=== PATIENT | male | born 1940 | race Caucasian/White ===

== ENCOUNTER 2022-12-05 14:23 | Emergency (ER) | payer MEDICARE, OTHER ==
[~2022-12-05] VITALS: Ht 160 cm; Wt 79.0 kg
--- NOTE | 2022-12-05 14:32 | NUR ---
PT'S DAUGHTER; CHETAN TRAMMELL, CALLED. PT HAS GIVEN PERMISSION TO GIVE CHETAN ALL INFORMATION REGARDING HIS ER VISIT TODAY CONTACT # FOR CHETAN VALERI: [phone]
--- NOTE | 2022-12-05 15:30 | NUR ---
CLINIC SPECIALIST ASSESSMENT REVIEWED. AGREE AND APROVE OF THE CLINIC SPECIALIST ASSESSMENT.
[2022-12-05] MEDS ORDERED: HYDROcodone/acetaminophen 10/325mg tab PO ONE (15:45)
[2022-12-05 17:33] LABS: CLARITY,URINE SLIGHTLY CLOUDY (Clear); COLOR,URINE YELLOW (Yellow); GLUCOSE, URINE NEGATIVE (Neg); KETONES,URINE 40 mg/dl (Neg); LEUKOCYTE ESTERASE ,URINE NEGATIVE (Neg); NITRITES, URINE NEGATIVE (Neg); OCCULT BLOOD,URINE NEGATIVE (Neg); PROTEIN,URINE NEGATIVE (Neg); UROBILINOGEN,URINE 0.2 E.U/dL (0.2-1.0)
[2022-12-05 17:34] LABS: UA COLLECTION TYPE VOIDED
[2022-12-05 17:39] LABS: BASOPHILS % (AUTO) 0.2 % (0-1); EOSINOPHILS % (AUTO) 0 % (0-6); HEMOGLOBIN 13.4 g/dl (14.0-17.9); LYMPHOCYTES % (AUTO) 9.4 % (21-51); MEAN CORPUSCULAR HEMOGLOBIN 31.5 PG (27.0-31.0); MEAN CORPUSCULAR HGB CONC 34.4 g/dL (33.0-36.5); MEAN CORPUSCULAR VOLUME 91.6 FL (78-98); MEAN PLATELET VOLUME 7.9 FL (7.4-10.4); MONOCYTES # (AUTO) 1.2 X10'3 (0-0.9); MONOCYTES % (AUTO) 11.5 % (2-12); NEUTROPHILS # (AUTO) 8.2 X10'3 (1.8-7.7); NEUTROPHILS % (AUTO) 78.9 % (42-75); PLATELET COUNT 166 X10'3 (140-440); RED BLOOD COUNT 4.26 X10'6 (4.70-6.10); RED CELL DISTRIBUTION WIDTH 13.7 % (11.5-14.5); WHITE BLOOD COUNT 10.4 X10'3 (4.5-11.0)
[2022-12-05 17:48] LABS: MUCUS STRANDS MANY /LPF (Neg); SQUAMOUS EPITHELIAL CELL,UR FEW /LPF (FEW)
[2022-12-05 17:49] VITALS: BP 134/68
[2022-12-05 17:56] LABS: BACTERIA,URINE 1+ /HPF (Neg)
[2022-12-05 17:57] LABS: HYALINE CASTS 0-3 /LPF (NEGATIVE)
[2022-12-05 18:01] LABS: CELLULAR CAST 0-4 /LPF (NEGATIVE)
[2022-12-05 18:05] LABS: ALANINE AMINOTRANSFERASE 12 U/L (12-78); ALBUMIN 3.5 G/DL (3.4-5.0); ALBUMIN/GLOBULIN RATIO 1.2 (1.1-1.5); ALKALINE PHOSPHATASE 53 IU/L (46-116); ANION GAP 9 (8-16); ASPARTATE AMINO TRANSFERASE 14 U/L (10-37); BILIRUBIN,TOTAL 1.8 MG/DL (0.1-1.0); BLOOD UREA NITROGEN 18 MG/DL (7-18); BUN/CREATININE RATIO 24.3 (10.0-20.0); C-REACTIVE PROTEIN 5.22 MG/DL (0.0-0.5); CALCIUM 8.9 MG/DL (8.5-10.1); CHLORIDE 104 MMOL/L (99-107); CREATININE 0.74 MG/DL (0.60-1.10); GLUCOSE 118 MG/DL (70-104); POTASSIUM 3.5 MMOL/L (3.5-5.1); SODIUM 138 MMOL/L (135-145); TOTAL PROTEIN 6.4 G/DL (6.4-8.2); eGFR > 90 ML/MIN
[2022-12-05 18:07] LABS: TRANSITIONAL EPI CELLS,URINE FEW /HPF
--- NOTE | 2022-12-05 19:20 | NUR ---
PT WAS ABLE TO GET OUT OF BED WITH NO ASTANCE, ONLY AT BEDSIDE FOR SUPPORT NO WALKER WAS AVALIBLE. PT STOOD ON OWN ACCORD WITH MINIAL ASSISTANCE. PT STATED AT HOME HE USED A WALKER. PT SHUFFELED 2FT FORWARD ND RETURNED TO BED. INFORMED
[2022-12-05] MEDS ORDERED: DICL100G30 TOP (19:43)
[2022-12-05] MEDS ORDERED: NAPR-996 PO (19:43)
[2022-12-05] MEDS ORDERED: naproxen 500mg tablet PO ONE (19:45)
--- NOTE | 2022-12-05 20:11 | NUR ---
PT MOVED TO WHEEL CHAIR AND TX OUT TO CAR.
== END 2022-12-05 20:19 | disposition home or self-care (01) ==
LOC: ER 14:24
DX: M25.462 Effusion, left knee (principal); G89.29 Other chronic pain; W19.XXXA Unspecified fall, initial encounter; Y93.89 Activity, other specified; Y92.89 Other specified places as the place of occurrence of the external cause; Y99.8 Other external cause status
CPT/HCPCS: 36415; 73560; 73700; 80053; 81001; 83735; 85025; 85651; 86140; 87088; 99284; A6449

== ENCOUNTER 2022-12-28 12:46 | Inpatient (IN) | payer MEDICARE, OTHER ==
[~2022-12-28] VITALS: Ht 162.6 cm; Wt 79.5 kg
[~2022-12-28 12:46] MED LIST: DICL100G30 TOP; NAPR-996 PO
[2022-12-28 14:11] LABS: BASOPHILS % (AUTO) 0.3 % (0-1); EOSINOPHILS # (AUTO) 0.3 X10'3 (0-0.9); EOSINOPHILS % (AUTO) 2.9 % (0-6); HEMATOCRIT 36.6 % (42.0-52.0); HEMOGLOBIN 12.5 g/dl (14.0-17.9); LYMPHOCYTES # (AUTO) 1.2 X10'3 (1.1-4.8); LYMPHOCYTES % (AUTO) 12.7 % (21-51); MEAN CORPUSCULAR HEMOGLOBIN 31.6 PG (27.0-31.0); MEAN CORPUSCULAR HGB CONC 34.1 g/dL (33.0-36.5); MEAN CORPUSCULAR VOLUME 92.7 FL (78-98); MEAN PLATELET VOLUME 8.8 FL (7.4-10.4); MONOCYTES % (AUTO) 10.5 % (2-12); NEUTROPHILS # (AUTO) 6.8 X10'3 (1.8-7.7); NEUTROPHILS % (AUTO) 73.6 % (42-75); PLATELET COUNT 136 X10'3 (140-440); RED BLOOD COUNT 3.95 X10'6 (4.70-6.10); RED CELL DISTRIBUTION WIDTH 15.3 % (11.5-14.5); WHITE BLOOD COUNT 9.3 X10'3 (4.5-11.0)
[2022-12-28 14:20] LABS: APTT 29 SECONDS (22-32)
[2022-12-28 14:25] LABS: ALANINE AMINOTRANSFERASE 23 U/L (12-78); ALBUMIN 3.6 G/DL (3.4-5.0); ALBUMIN/GLOBULIN RATIO 1.6 (1.1-1.5); ALKALINE PHOSPHATASE 50 IU/L (46-116); ANION GAP 11 (8-16); ASPARTATE AMINO TRANSFERASE 37 U/L (10-37); BLOOD UREA NITROGEN 18 MG/DL (7-18); BUN/CREATININE RATIO 22.5 (10.0-20.0); CALCIUM 8.4 MG/DL (8.5-10.1); CHLORIDE 105 MMOL/L (99-107); GLUCOSE 106 MG/DL (70-104); POTASSIUM 3.6 MMOL/L (3.5-5.1); SODIUM 141 MMOL/L (135-145); TOTAL CARBON DIOXIDE 25.3 MMOL/L (24-32); TOTAL PROTEIN 5.8 G/DL (6.4-8.2); eGFR > 90 ML/MIN
--- NOTE | 2022-12-28 16:15 | NUR ---
DR VILLALOBOS AT BEDSIDE.
[2022-12-28] MEDS ORDERED: acetaminophen 325mg tablet PO PRN (18:25)
[2022-12-28] MEDS ORDERED: potassium Cl 20 mEq SR tablet PO PRN (18:25)
[2022-12-28] MEDS ORDERED: potassium Cl 40MEQ/1/2NS 520ml 520 ML IV PRN (18:25)
[2022-12-28] MEDS ORDERED: magnesium 4gm in 100ml NS 100 ML IV PRN (18:25)
[2022-12-28] MEDS ORDERED: ondansetron 4mg rapidly disintigrating tab PO PRN (18:25)
[2022-12-28] MEDS ORDERED: magnesium Cl slow-release 64mg tablet PO PRN (18:25)
[2022-12-28] MEDS ORDERED: ondansetron/PF 4mg/2ml inj IV PRN (18:25)
[2022-12-28] MEDS ORDERED: magnesium 2GM in 50ml NS 50 ML IV PRN (18:25)
[2022-12-28] MEDS ORDERED: bisacodyl 10mg suppository rectal RC PRN (18:25)
[2022-12-28] MEDS ORDERED: HYDROmorphone/PF 0.2 MG/ML SYRINGE IV PRN (18:25)
[2022-12-28] MEDS ORDERED: HYDROcodone/acetaminophen 5mg/325mg tablet PO PRN (18:25)
[2022-12-28] MEDS ORDERED: acetaminophen 650mg rectal suppository RC PRN (18:25)
[2022-12-28] MEDS ORDERED: mag hydrox/Alum hydrox/simeth 30ml oral suspension PO PRN (18:25)
--- NOTE | 2022-12-28 18:45 | NUR ---
ASSUMED CARE FROM KAITY MAI
[2022-12-28] MEDS: normal saline 1000ml 1,000 ML IV SCH (18:46)
--- NOTE | 2022-12-28 18:54 | NUR ---
FAMILY AT BEDSIDE.
[2022-12-28 19:21] LABS: CHOL/HDL RATIO 1.9 (0.00-4.99); CHOLESTEROL 107 MG/DL (0-200); HDL CHOLESTEROL 55 MG/DL (35-60); LDL CHOLESTEROL 45 MG/DL (50-100); TRIGLYCERIDES 50 MG/DL (20-135)
[2022-12-28] MEDS: K and/or MAG REPLACEMENT MC SCH (20:00)
--- NOTE | 2022-12-28 20:00 | NUR ---
Received report from ER nurse Jara. All pertinent info received, all questions answered.
--- NOTE | 2022-12-28 20:10 | NUR ---
Pt arrived from ER via gurney at 2004. Transferred to bed via slider. Pt awake, alert, confused. Family at bedside.
[2022-12-28 20:16] VITALS: BP 131/74
[2022-12-28] MEDS ORDERED: temazepam 15mg capsule PO PRN (21:00)
[2022-12-28] MEDS: docusate sod 100mg capsule PO SCH (21:38)
--- NOTE | 2022-12-28 21:56 | NUR ---
Pt agitated and pulling at lines, pulling off clothing, yelling out. called and advised. zyprexa 5mgX1 ordered.
[2022-12-28] MEDS ORDERED: OLANZapine 2.5MG tablet PO ONE (22:00)
--- NOTE | 2022-12-28 22:16 | NUR ---
Pt agitated and screaming, threatening staff, trying to get out of bed. Zyprexa PO given but patient still agitated as pills just given. MD called for restraints.
--- NOTE | 2022-12-28 22:26 | NUR ---
Called pt daughter Laurie and left message to call me back, advised via message and asked her to call me back.
--- NOTE | 2022-12-28 22:40 | NUR ---
Pt daughter called back and I advised of current situation. She acknowledged and stated she would be back to hospital in AM.
[2022-12-29] VITALS (19 sets, daily range): BP systolic 111–164; BP diastolic 59–116
--- NOTE | 2022-12-29 00:13 | NUR ---
Pt still screaming, agitated. Managed to pull out PIV. HR in 160's. called who ordered 1mg Ativan IM.
[2022-12-29] MEDS ORDERED: LORazepam 2 mg/ml vial IM ONE (00:15)
--- NOTE | 2022-12-29 03:48 | NUR ---
Pt less agitated but still awake, pulling at lines, anxious and fidgety. HR has been elevated consistently in the 140 range.
--- NOTE | 2022-12-29 05:08 | NUR ---
Called Dr. Montana and advised that pt HR elevated in 140's most of evening. ordered one time dose of metoprolol.
[2022-12-29] MEDS ORDERED: metoprolol tartrate 12.5mg (1/2 tablet) PO ONE (05:10)
[2022-12-29 06:14] LABS: BASOPHILS % (AUTO) 0.2 % (0-1); EOSINOPHILS # (AUTO) 0.2 X10'3 (0-0.9); EOSINOPHILS % (AUTO) 1.7 % (0-6); HEMATOCRIT 37.8 % (42.0-52.0); LYMPHOCYTES # (AUTO) 1.3 X10'3 (1.1-4.8); LYMPHOCYTES % (AUTO) 12.4 % (21-51); MEAN CORPUSCULAR HEMOGLOBIN 31.3 PG (27.0-31.0); MEAN CORPUSCULAR HGB CONC 34.3 g/dL (33.0-36.5); MEAN CORPUSCULAR VOLUME 91.5 FL (78-98); MEAN PLATELET VOLUME 8.6 FL (7.4-10.4); MONOCYTES # (AUTO) 1.3 X10'3 (0-0.9); MONOCYTES % (AUTO) 11.8 % (2-12); NEUTROPHILS # (AUTO) 7.9 X10'3 (1.8-7.7); NEUTROPHILS % (AUTO) 73.9 % (42-75); PLATELET COUNT 144 X10'3 (140-440); RED BLOOD COUNT 4.14 X10'6 (4.70-6.10); RED CELL DISTRIBUTION WIDTH 15.2 % (11.5-14.5); WHITE BLOOD COUNT 10.7 X10'3 (4.5-11.0)
--- NOTE | 2022-12-29 06:35 | NUR ---
Patient in room PCU 3027. I have received report from KAITY Causey and had the opportunity to ask questions and assume patient care.
--- NOTE | 2022-12-29 06:35 | NUR ---
Problems reprioritized. Patient report given, questions answered & plan of care reviewed with Vero.
[2022-12-29 06:47] LABS: ALANINE AMINOTRANSFERASE 23 U/L (12-78); ALBUMIN 3.3 G/DL (3.4-5.0); ALBUMIN/GLOBULIN RATIO 1.4 (1.1-1.5); ALKALINE PHOSPHATASE 52 IU/L (46-116); ANION GAP 12 (8-16); ASPARTATE AMINO TRANSFERASE 40 U/L (10-37); BILIRUBIN,TOTAL 2.4 MG/DL (0.1-1.0); BLOOD UREA NITROGEN 18 MG/DL (7-18); BUN/CREATININE RATIO 22.2 (10.0-20.0); CALCIUM 8.2 MG/DL (8.5-10.1); CHLORIDE 106 MMOL/L (99-107); CREATININE 0.81 MG/DL (0.60-1.10); GLUCOSE 105 MG/DL (70-104); MAGNESIUM 1.6 MG/DL (1.5-2.4); POTASSIUM 3.4 MMOL/L (3.5-5.1); SODIUM 142 MMOL/L (135-145); TOTAL CARBON DIOXIDE 24.2 MMOL/L (24-32); TOTAL PROTEIN 5.7 G/DL (6.4-8.2); eGFR > 90 ML/MIN
[2022-12-29] MEDS: normal saline 1000ml 1,000 ML IV SCH ×3 (06:55→21:34)
[2022-12-29] MEDS: K and/or MAG REPLACEMENT MC SCH ×2 (07:52→20:00)
[2022-12-29] MEDS ORDERED: LORazepam 1 MG tablet PO PRN ×2 (08:00→14:45)
[2022-12-29] MEDS ORDERED: LORazepam 2 mg/ml vial IV PRN (08:00)
[2022-12-29] MEDS: potassium Cl 20 mEq SR tablet PO PRN ×3 (08:20→16:16)
[2022-12-29] MEDS: docusate sod 100mg capsule PO SCH ×2 (08:20→20:00)
[2022-12-29] MEDS: carVEDilol 3.125mg tablet PO SCH ×2 (08:20→21:16)
[2022-12-29 10:39] LABS: CLARITY,URINE CLEAR (Clear); COLOR,URINE YELLOW (Yellow); GLUCOSE, URINE NEGATIVE (Neg); LEUKOCYTE ESTERASE ,URINE NEGATIVE (Neg); NITRITES, URINE NEGATIVE (Neg); OCCULT BLOOD,URINE NEGATIVE (Neg); PROTEIN,URINE NEGATIVE (Neg)
[2022-12-29 10:47] LABS: KETONES,URINE >=80 mg/dl (Neg)
[2022-12-29 10:48] LABS: UA COLLECTION TYPE NON-SPECIFIED
[2022-12-29] MEDS ORDERED: diltiazem 5mg/ml 5ml inj. IV ONE (14:45)
[2022-12-29] MEDS ORDERED: ziprasidone IM 20mg inj **IM only IM ONE (14:45)
[2022-12-29] MEDS ORDERED: diltiazem-NS 100mg/100ml 100 ML IV SCH (14:45)
[2022-12-29] MEDS ORDERED: CARV3.12 PO (15:53)
[2022-12-29] MEDS ORDERED: OMEP20CA16 PO (15:53)
[2022-12-29] MEDS ORDERED: ATOR10TA87 PO (15:53)
[2022-12-29] MEDS ORDERED: OCUVITE PO (15:53)
[2022-12-29] MEDS: LORazepam 2 mg/ml vial IV PRN (17:48)
--- NOTE | 2022-12-29 18:04 | NUR ---
Patient in room PCU 3027. I have received report from Vero and had the opportunity to ask questions and assume patient care.
--- NOTE | 2022-12-29 18:40 | NUR ---
Problems reprioritized. Patient report given, questions answered & plan of care reviewed with KAITY Causey.
--- NOTE | 2022-12-29 19:00 | NUR ---
1800 informed by [employer] that @ 1733 pt converted to NSR w/new first degree heart block. notified. 1810 pt's HR began to go into the 50s. Diltiazem drip stopped while awaiting MD response. paged again to inform of diltiazem drip stopped due to HR decreasing into 50s @ times. 1840 No MD response, therefore paged again requesting orders for diltiazem, etc.
--- NOTE | 2022-12-29 19:45 | NUR ---
Advised MD that pt converted to NSR with normal BP and HR within normal limits. advised to Lalo clark
--- NOTE | 2022-12-29 22:54 | NUR ---
Daughter of patient (Laurie) called asking for update on patient. She stated she visited with her father today and he was not responding to her as he did the last time that she saw him. I advised his condition had not changed since she left and that the MD was aware of his mental status change and was recommending a neurology consult.
[2022-12-30 02:00] VITALS: BP 126/81
--- NOTE | 2022-12-30 05:32 | NUR ---
Pt had incontinent urine episode. Changed pt linen, provided nadeem-care, turned pt. Loosened restraints during this time asked pt questins. Pt responded with eyes closed but trying to answer questins. When asked, he advised me of his daughters names. When finished I sat beside patient who had eyes closed with restraints loosed to see if he would pull at lines or tubes or attempt to get out of bed. Pt calm, breathing easily with eyes closed. Will continue to observe with restraints off.
[2022-12-30 06:00] VITALS: BP 156/81
[2022-12-30 06:15] LABS: ALANINE AMINOTRANSFERASE 23 U/L (12-78); ALBUMIN 3.2 G/DL (3.4-5.0); ALBUMIN/GLOBULIN RATIO 1.3 (1.1-1.5); ALKALINE PHOSPHATASE 53 IU/L (46-116); ANION GAP 13 (8-16); ASPARTATE AMINO TRANSFERASE 42 U/L (10-37); BLOOD UREA NITROGEN 14 MG/DL (7-18); BUN/CREATININE RATIO 21.9 (10.0-20.0); CALCIUM 8.3 MG/DL (8.5-10.1); CHLORIDE 103 MMOL/L (99-107); CREATININE 0.64 MG/DL (0.60-1.10); GLUCOSE 83 MG/DL (70-104); MAGNESIUM 1.6 MG/DL (1.5-2.4); POTASSIUM 3.6 MMOL/L (3.5-5.1); SODIUM 139 MMOL/L (135-145); TOTAL CARBON DIOXIDE 22.6 MMOL/L (24-32); TOTAL PROTEIN 5.7 G/DL (6.4-8.2); eGFR > 90 ML/MIN
--- NOTE | 2022-12-30 06:35 | NUR ---
Problems reprioritized. Patient report given, questions answered & plan of care reviewed with Vero.
--- NOTE | 2022-12-30 06:45 | NUR ---
Patient in room PCU 3027. I have received report from KAITY Causey and had the opportunity to ask questions and assume patient care.
[2022-12-30] MEDS: K and/or MAG REPLACEMENT MC SCH ×2 (07:31→20:29)
[2022-12-30] MEDS ORDERED: bisacodyl 10mg suppository rectal RC PRN (07:35)
[2022-12-30] MEDS: docusate sod 100mg capsule PO SCH ×2 (08:08→20:00)
[2022-12-30] MEDS: magnesium hydroxide 30ml (MOM) UD suspension PO PRN (08:08)
[2022-12-30] MEDS: carVEDilol 3.125mg tablet PO SCH ×2 (08:09→20:36)
[2022-12-30] MEDS: normal saline 1000ml 1,000 ML IV SCH ×2 (08:25→20:40)
[2022-12-30 08:36] LABS: BASOPHILS % (AUTO) 0.2 % (0-1); EOSINOPHILS # (AUTO) 0.4 X10'3 (0-0.9); EOSINOPHILS % (AUTO) 3.5 % (0-6); HEMATOCRIT 39.5 % (42.0-52.0); HEMOGLOBIN 13.4 g/dl (14.0-17.9); LYMPHOCYTES # (AUTO) 1.1 X10'3 (1.1-4.8); LYMPHOCYTES % (AUTO) 10.3 % (21-51); MEAN CORPUSCULAR HEMOGLOBIN 31.5 PG (27.0-31.0); MEAN CORPUSCULAR VOLUME 92.6 FL (78-98); MEAN PLATELET VOLUME 8.8 FL (7.4-10.4); MONOCYTES # (AUTO) 1.1 X10'3 (0-0.9); MONOCYTES % (AUTO) 10.5 % (2-12); NEUTROPHILS # (AUTO) 7.9 X10'3 (1.8-7.7); NEUTROPHILS % (AUTO) 75.5 % (42-75); PLATELET COUNT 151 X10'3 (140-440); RED BLOOD COUNT 4.27 X10'6 (4.70-6.10); RED CELL DISTRIBUTION WIDTH 14.8 % (11.5-14.5); WHITE BLOOD COUNT 10.4 X10'3 (4.5-11.0)
--- NOTE | 2022-12-30 08:48 | NUR ---
Noted pt with a low Lei of 12. Per [facility] note pt with a dry scab noted to right elbow and behind right ear, remainder of skin was unremarkable. No increased protein needs requiring a nutrition intervention warranted at this time. Will continue to follow. Addendum: 12/30/22 at [address] Amended: Links added.
--- NOTE | 2022-12-30 09:00 | NUR ---
Dr Arredondo states to not give pt anymore narcotics or ativan unless absolutely needed so we can determine if pt's increased confusion is 2/2 meds.
[2022-12-30 11:00] VITALS: BP 137/86
[2022-12-30 15:00] VITALS: BP 134/62
[2022-12-30 18:00] VITALS: BP 158/81
--- NOTE | 2022-12-30 18:20 | NUR ---
Problems reprioritized. Patient report given, questions answered & plan of care reviewed with KAITY Mulligan.
--- NOTE | 2022-12-30 18:32 | NUR ---
Patient in room PCU 3027. I have received report from PETEY BRICENO and had the opportunity to ask questions and assume patient care.
[2022-12-30] MEDS: enoxaparin 40mg/0.4ml syringe SUBCUT SCH (20:00)
[2022-12-30] MEDS: LORazepam 2 mg/ml vial IV PRN (20:36)
[2022-12-31 06:00] VITALS: BP 164/81
[2022-12-31 06:17] LABS: BASOPHILS % (AUTO) 0.1 % (0-1); EOSINOPHILS # (AUTO) 0.1 X10'3 (0-0.9); EOSINOPHILS % (AUTO) 0.7 % (0-6); HEMATOCRIT 39.8 % (42.0-52.0); HEMOGLOBIN 13.5 g/dl (14.0-17.9); LYMPHOCYTES # (AUTO) 0.6 X10'3 (1.1-4.8); LYMPHOCYTES % (AUTO) 5.4 % (21-51); MEAN CORPUSCULAR HEMOGLOBIN 31.5 PG (27.0-31.0); MEAN CORPUSCULAR VOLUME 92.9 FL (78-98); MEAN PLATELET VOLUME 8.3 FL (7.4-10.4); MONOCYTES # (AUTO) 1.1 X10'3 (0-0.9); MONOCYTES % (AUTO) 9.6 % (2-12); NEUTROPHILS % (AUTO) 84.2 % (42-75); PLATELET COUNT 154 X10'3 (140-440); RED BLOOD COUNT 4.28 X10'6 (4.70-6.10); RED CELL DISTRIBUTION WIDTH 14.6 % (11.5-14.5); WHITE BLOOD COUNT 11.9 X10'3 (4.5-11.0)
--- NOTE | 2022-12-31 06:20 | NUR ---
Problems reprioritized. Patient report given, questions answered & plan of care reviewed with RADHA NO.
[2022-12-31 06:31] LABS: ALANINE AMINOTRANSFERASE 22 U/L (12-78); ALBUMIN 3.1 G/DL (3.4-5.0); ALBUMIN/GLOBULIN RATIO 1.2 (1.1-1.5); ALKALINE PHOSPHATASE 53 IU/L (46-116); ANION GAP 15 (8-16); ASPARTATE AMINO TRANSFERASE 37 U/L (10-37); BILIRUBIN,TOTAL 2.6 MG/DL (0.1-1.0); BLOOD UREA NITROGEN 12 MG/DL (7-18); BUN/CREATININE RATIO 20.3 (10.0-20.0); CALCIUM 8.3 MG/DL (8.5-10.1); CHLORIDE 100 MMOL/L (99-107); CREATININE 0.59 MG/DL (0.60-1.10); GLUCOSE 90 MG/DL (70-104); MAGNESIUM 1.8 MG/DL (1.5-2.4); POTASSIUM 3.8 MMOL/L (3.5-5.1); SODIUM 136 MMOL/L (135-145); TOTAL PROTEIN 5.7 G/DL (6.4-8.2); eGFR > 90 ML/MIN
[2022-12-31] MEDS: K and/or MAG REPLACEMENT MC SCH ×2 (08:00→19:51)
[2022-12-31] MEDS: carVEDilol 3.125mg tablet PO SCH ×2 (08:17→19:41)
[2022-12-31] MEDS: docusate sod 100mg capsule PO SCH ×2 (08:17→19:51)
[2022-12-31 11:00] VITALS: BP 154/76
[2022-12-31 14:00] VITALS: BP 146/98
--- NOTE | 2022-12-31 14:18 | NUR ---
Patient in room PCU 3027. I have received report from KAITY Mulligan and had the opportunity to ask questions and assume patient care.
--- NOTE | 2022-12-31 16:00 | NUR ---
AGREE WITH CATTLE PRODUCERS AM ASSESSMENT.
[2022-12-31] MEDS: LORazepam 2 mg/ml vial IV PRN (16:44)
[2022-12-31 18:00] VITALS: BP 109/82
--- NOTE | 2022-12-31 18:11 | NUR ---
Problems reprioritized. Patient report given, questions answered & plan of care reviewed with KAITY Mulligan.
--- NOTE | 2022-12-31 18:21 | NUR ---
Patient in room PCU 3027. I have received report from RADHA NO and had the opportunity to ask questions and assume patient care.
[2022-12-31] MEDS: HYDROcodone/acetaminophen 10/325mg tab PO PRN (19:41)
[2022-12-31] MEDS: enoxaparin 40mg/0.4ml syringe SUBCUT SCH (19:41)
[2022-12-31 22:00] VITALS: BP 101/74
[2022-12-31] MEDS: normal saline 1000ml 1,000 ML IV SCH (22:01)
[2023-01-01] MEDS: HYDROcodone/acetaminophen 10/325mg tab PO PRN ×2 (02:36→07:52)
[2023-01-01 02:49] VITALS: BP 136/76
[2023-01-01 05:48] LABS: BASOPHILS % (AUTO) 0.1 % (0-1); EOSINOPHILS % (AUTO) 0.1 % (0-6); HEMATOCRIT 37.2 % (42.0-52.0); HEMOGLOBIN 12.8 g/dl (14.0-17.9); LYMPHOCYTES # (AUTO) 0.8 X10'3 (1.1-4.8); LYMPHOCYTES % (AUTO) 5.3 % (21-51); MEAN CORPUSCULAR HEMOGLOBIN 31.1 PG (27.0-31.0); MEAN CORPUSCULAR HGB CONC 34.3 g/dL (33.0-36.5); MEAN CORPUSCULAR VOLUME 90.9 FL (78-98); MEAN PLATELET VOLUME 8.4 FL (7.4-10.4); MONOCYTES # (AUTO) 2.1 X10'3 (0-0.9); MONOCYTES % (AUTO) 14.5 % (2-12); NEUTROPHILS # (AUTO) 11.5 X10'3 (1.8-7.7); PLATELET COUNT 173 X10'3 (140-440); RED BLOOD COUNT 4.09 X10'6 (4.70-6.10); RED CELL DISTRIBUTION WIDTH 14.7 % (11.5-14.5); WHITE BLOOD COUNT 14.4 X10'3 (4.5-11.0)
[2023-01-01 06:00] VITALS: BP 172/96
[2023-01-01 06:10] LABS: ALANINE AMINOTRANSFERASE 19 U/L (12-78); ALBUMIN 2.6 G/DL (3.4-5.0); ALBUMIN/GLOBULIN RATIO 0.8 (1.1-1.5); ALKALINE PHOSPHATASE 47 IU/L (46-116); ANION GAP 10 (8-16); ASPARTATE AMINO TRANSFERASE 22 U/L (10-37); BILIRUBIN,TOTAL 2.3 MG/DL (0.1-1.0); BLOOD UREA NITROGEN 19 MG/DL (7-18); BUN/CREATININE RATIO 26.4 (10.0-20.0); CALCIUM 8.1 MG/DL (8.5-10.1); CHLORIDE 101 MMOL/L (99-107); CREATININE 0.72 MG/DL (0.60-1.10); GLUCOSE 137 MG/DL (70-104); MAGNESIUM 1.8 MG/DL (1.5-2.4); POTASSIUM 3.6 MMOL/L (3.5-5.1); SODIUM 136 MMOL/L (135-145); TOTAL CARBON DIOXIDE 24.6 MMOL/L (24-32); TOTAL PROTEIN 5.7 G/DL (6.4-8.2); eGFR > 90 ML/MIN
--- NOTE | 2023-01-01 06:26 | NUR ---
Problems reprioritized. Patient report given, questions answered & plan of care reviewed with CARMELO BRICENO.
--- NOTE | 2023-01-01 06:35 | NUR ---
Patient in room PCU 3027. I have received report from Ese and had the opportunity to ask questions and assume patient care.
[2023-01-01 06:36] LABS: TOTAL CELLS COUNTED 100
[2023-01-01 06:43] LABS: PLATELET ESTIMATE NORMAL
[2023-01-01] MEDS: K and/or MAG REPLACEMENT MC SCH ×2 (07:45→20:00)
[2023-01-01] MEDS: docusate sod 100mg capsule PO SCH ×2 (07:47→19:37)
[2023-01-01] MEDS: carVEDilol 3.125mg tablet PO SCH ×2 (07:52→19:37)
--- NOTE | 2023-01-01 08:45 | NUR ---
Spoke with patient's niece Sofia. Provided update on patient's current status. She indicated she may be in to visit later today.
[2023-01-01] MEDS ORDERED: NAPR-996 PO (09:03)
[2023-01-01] MEDS ORDERED: DICL100G30 TOP (09:03)
--- NOTE | 2023-01-01 10:01 | NUR ---
Spoke with patient's daughter Laurie. Provided update on patient's condition. She is trying to drive over from [employer] either today or tomorrow.
[2023-01-01] MEDS: normal saline 1000ml 1,000 ML IV SCH ×2 (10:29→20:08)
[2023-01-01 11:00] VITALS: BP 108/62
--- NOTE | 2023-01-01 15:09 | NUR ---
Re: 3027B, Martina, pt has 541 via bladder scan, please advise Emmy 2214
[2023-01-01 15:16] VITALS: BP 116/59
[2023-01-01 18:00] VITALS: BP 168/80
--- NOTE | 2023-01-01 18:12 | NUR ---
Problems reprioritized. Patient report given, questions answered & plan of care reviewed with Loc Thorpe
[2023-01-01] MEDS ORDERED: CefTRIAXone/D5W-Rocephin 1gm 50 ML IV ONE (19:15)
[2023-01-01] MEDS: enoxaparin 40mg/0.4ml syringe SUBCUT SCH (19:37)
[2023-01-02 02:00] VITALS: BP 157/71
--- NOTE | 2023-01-02 05:44 | NUR ---
AGREE WITH RADAR ENGINEERING TEACHER ASSESSMENT
[2023-01-02] MEDS: normal saline 1000ml 1,000 ML IV SCH ×3 (06:08→23:25)
[2023-01-02 06:57] LABS: BASOPHILS % (AUTO) 0.3 % (0-1); EOSINOPHILS % (AUTO) 0.4 % (0-6); HEMATOCRIT 35.5 % (42.0-52.0); HEMOGLOBIN 12.1 g/dl (14.0-17.9); LYMPHOCYTES % (AUTO) 8.2 % (21-51); MEAN CORPUSCULAR VOLUME 91.1 FL (78-98); MEAN PLATELET VOLUME 7.9 FL (7.4-10.4); MONOCYTES # (AUTO) 1.3 X10'3 (0-0.9); MONOCYTES % (AUTO) 10.4 % (2-12); NEUTROPHILS # (AUTO) 10.1 X10'3 (1.8-7.7); NEUTROPHILS % (AUTO) 80.7 % (42-75); PLATELET COUNT 165 X10'3 (140-440); RED BLOOD COUNT 3.89 X10'6 (4.70-6.10); RED CELL DISTRIBUTION WIDTH 14.5 % (11.5-14.5); WHITE BLOOD COUNT 12.5 X10'3 (4.5-11.0)
[2023-01-02 07:13] LABS: ALANINE AMINOTRANSFERASE 19 U/L (12-78); ALBUMIN 2.3 G/DL (3.4-5.0); ALBUMIN/GLOBULIN RATIO 0.7 (1.1-1.5); ALKALINE PHOSPHATASE 43 IU/L (46-116); ANION GAP 9 (8-16); ASPARTATE AMINO TRANSFERASE 25 U/L (10-37); BILIRUBIN,TOTAL 1.8 MG/DL (0.1-1.0); BLOOD UREA NITROGEN 20 MG/DL (7-18); CALCIUM 8.2 MG/DL (8.5-10.1); CHLORIDE 102 MMOL/L (99-107); CREATININE 0.74 MG/DL (0.60-1.10); GLUCOSE 123 MG/DL (70-104); POTASSIUM 3.3 MMOL/L (3.5-5.1); SODIUM 135 MMOL/L (135-145); TOTAL CARBON DIOXIDE 24.3 MMOL/L (24-32); TOTAL PROTEIN 5.5 G/DL (6.4-8.2); eGFR > 90 ML/MIN
[2023-01-02 07:31] VITALS: BP 131/68
[2023-01-02] MEDS: K and/or MAG REPLACEMENT MC SCH ×2 (08:00→20:14)
[2023-01-02] MEDS: acetaminophen 325mg tablet PO PRN (10:27)
[2023-01-02] MEDS: docusate sod 100mg capsule PO SCH ×2 (10:27→19:55)
[2023-01-02] MEDS: carVEDilol 3.125mg tablet PO SCH ×2 (10:28→19:54)
[2023-01-02] MEDS: CefTRIAXone/D5W-Rocephin 1gm 50 ML IV SCH (10:28)
--- NOTE | 2023-01-02 10:54 | NUR ---
Called Aubree to give update.
[2023-01-02 11:00] VITALS: BP 117/71
--- NOTE | 2023-01-02 11:07 | NUR ---
PAGER ID: [phone] MESSAGE: Ramon Mack [id number] Bronchospastic coughing after drinking water. ST eval? CXR? RT treatment? Very wheezy LS with crackles- NS @100. k also low- nothing ordered. please renew restraint order as well. SOBIA [id number]
[2023-01-02] MEDS ORDERED: potassium Cl 40MEQ/1/2NS 520ml 520 ML IV PRN (12:55)
[2023-01-02] MEDS ORDERED: magnesium Cl slow-release 64mg tablet PO PRN (12:55)
[2023-01-02] MEDS ORDERED: magnesium 4gm in 100ml NS 100 ML IV PRN (12:55)
[2023-01-02] MEDS ORDERED: potassium Cl 20 mEq SR tablet PO PRN ×2 (12:55)
[2023-01-02] MEDS ORDERED: magnesium 2GM in 50ml NS 50 ML IV PRN (12:55)
[2023-01-02] MEDS ORDERED: POTASSIUM BICARBONATE/CIT AC 10 MEQ TABLET.EFF PO PRN (13:00)
--- NOTE | 2023-01-02 13:09 | NUR ---
PRESSURE ULCER EDUCATION: DEFINITION: A pressure ulcer is an area of skin that breaks down when you stay in one position too long. The constant pressure against the skin reduces the blood flow to that area and the affected tissue dies. CAUSES: "Being bedridden or in a wheelchair "Fragile skin "Having a chronic condition, such as diabetes or vascular disease "Inability to move certain parts of your body without assistance "Older age "Incontinence of urine or stool SYMPTOMS: "A reddened area that DOES NOT turn white when pressed on - this can be the beginning of a pressure ulcer "A blister, deep sore or a crater - these can be advanced pressure ulcers FIRST AID: "Relieve the pressure on this area "Keep the area clean and dry "Call your primary doctor if you see any of the above symptoms "DO NOT massage the area "DO NOT use a donut shaped or ring shaped pillow- these actually interfere with the blood flow and cause complications PREVENTION: "Check for pressure ulcers everyday "Change position at least every two hours to relieve pressure "Use items that help relieve pressure- pillows, sheepskin, foam padding, and powders. "Keep skin clean and dry "Eat healthy well balanced meals "Exercise daily IF YOU SEE ANY OF THESE SYMPTOMS WHILE IN THE HOSPITAL - TELL YOUR NURSE IMMEDIATELY. IF YOU SEE ANY OF THESE SYMPTOMS WHILE AT HOME OR HAVE ANY QUESTIONS OR CONCERNS ABOUT PRESSURE ULCERS - CALL YOUR PRIMARY DOCTOR IMMEDIATELY. Addendum: 01/02/23 at 1309 by Aline Canseco LVN Amended: Links added.
[2023-01-02 15:05] VITALS: BP 137/70
[2023-01-02] MEDS: POTASSIUM BICARB 20meq eff tab 20 MEQ TABLET.EFF PO PRN ×2 (16:33→19:58)
--- NOTE | 2023-01-02 16:36 | NUR ---
PAGER ID: [phone] MESSAGE: Ramon Martina [id number] Please witness pt. behaviors at the moment. Pt. is wailing constantly. Very anxious. I know we are trying to not sedate but please observe. Beata [id number]
[2023-01-02] MEDS ORDERED: LORazepam 2 mg/ml vial IV ONE (16:52)
--- NOTE | 2023-01-02 17:48 | NUR ---
PAGER ID: [phone] MESSAGE: Ramon Mack [id number] Pt. able to rest for 30 minutes. He is anxious and screeching loudly at the moment. Please observe and advise. Thank you Beata [phone]
[2023-01-02 18:00] VITALS: BP 120/84
[2023-01-02] MEDS ORDERED: divalproex 250mg tablet, delayed-release PO ONE (18:05)
--- NOTE | 2023-01-02 18:41 | NUR ---
Gave report to Loc BRICENO.
[2023-01-02] MEDS: Melatonin 3mg tablet PO SCH (19:54)
[2023-01-02] MEDS: enoxaparin 40mg/0.4ml syringe SUBCUT SCH (19:55)
[2023-01-03] MEDS ORDERED: prazosin 1mg capsule PO ONE (00:20)
[2023-01-03 02:00] VITALS: BP 137/108
[2023-01-03 06:00] VITALS: BP 114/65
[2023-01-03 06:55] VITALS: BP 124/68
[2023-01-03 07:45] LABS: BASOPHILS % (AUTO) 0.2 % (0-1); EOSINOPHILS # (AUTO) 0.2 X10'3 (0-0.9); EOSINOPHILS % (AUTO) 2.9 % (0-6); HEMATOCRIT 30.4 % (42.0-52.0); HEMOGLOBIN 10.5 g/dl (14.0-17.9); LYMPHOCYTES % (AUTO) 12.8 % (21-51); MEAN CORPUSCULAR HEMOGLOBIN 31.7 PG (27.0-31.0); MEAN CORPUSCULAR HGB CONC 34.5 g/dL (33.0-36.5); MEAN CORPUSCULAR VOLUME 91.9 FL (78-98); MEAN PLATELET VOLUME 8.3 FL (7.4-10.4); MONOCYTES # (AUTO) 0.7 X10'3 (0-0.9); MONOCYTES % (AUTO) 9.4 % (2-12); NEUTROPHILS # (AUTO) 5.7 X10'3 (1.8-7.7); NEUTROPHILS % (AUTO) 74.7 % (42-75); PLATELET COUNT 154 X10'3 (140-440); RED BLOOD COUNT 3.31 X10'6 (4.70-6.10); RED CELL DISTRIBUTION WIDTH 14.8 % (11.5-14.5); WHITE BLOOD COUNT 7.7 X10'3 (4.5-11.0)
[2023-01-03] MEDS: CefTRIAXone/D5W-Rocephin 1gm 50 ML IV SCH (07:57)
[2023-01-03] MEDS: carVEDilol 3.125mg tablet PO SCH ×2 (07:57→20:00)
[2023-01-03] MEDS: docusate sod 100mg capsule PO SCH ×2 (07:58→20:00)
[2023-01-03] MEDS: magnesium hydroxide 30ml (MOM) UD suspension PO PRN (07:58)
[2023-01-03] MEDS: acetaminophen 325mg tablet PO PRN (07:58)
[2023-01-03] MEDS: LORazepam 2 mg/ml vial IV PRN ×3 (07:59→23:26)
[2023-01-03] MEDS: K and/or MAG REPLACEMENT MC SCH ×2 (07:59→20:00)
[2023-01-03 08:07] LABS: ALANINE AMINOTRANSFERASE 24 U/L (12-78); ALBUMIN 2.1 G/DL (3.4-5.0); ALBUMIN/GLOBULIN RATIO 0.8 (1.1-1.5); ALKALINE PHOSPHATASE 38 IU/L (46-116); ANION GAP 8 (8-16); ASPARTATE AMINO TRANSFERASE 29 U/L (10-37); BILIRUBIN,TOTAL 1.4 MG/DL (0.1-1.0); BLOOD UREA NITROGEN 18 MG/DL (7-18); BUN/CREATININE RATIO 28.1 (10.0-20.0); CALCIUM 7.7 MG/DL (8.5-10.1); CHLORIDE 104 MMOL/L (99-107); CREATININE 0.64 MG/DL (0.60-1.10); GLUCOSE 106 MG/DL (70-104); MAGNESIUM 1.7 MG/DL (1.5-2.4); POTASSIUM 3.3 MMOL/L (3.5-5.1); SODIUM 137 MMOL/L (135-145); TOTAL PROTEIN 4.9 G/DL (6.4-8.2); eGFR > 90 ML/MIN
[2023-01-03] MEDS ORDERED: divalproex sod 125mg tablet.DR PO SCH (08:30)
[2023-01-03] MEDS: normal saline 1000ml 1,000 ML IV SCH (09:07)
--- NOTE | 2023-01-03 09:49 | NUR ---
Page Sent promotional table spacer PAGER ID: [phone] MESSAGE: [id number] ANAND. PATIENT INCREASINGLY AGITATED/CONFUSED TRYING TO GET OUT OF BED. FAMILY ASKING FOR SEDATION TO MAKE HIM COMFORTABLE. PLEASE ADVISE OR COME ASSESS. TATIANA / SOBIA @[phone] (184 character message out of a maximum of 240) CLOSE [X] SEND ANOTHER PAGE
[2023-01-03] MEDS ORDERED: OLANZapine **IM** 10 mg inj. IM ONE (10:00)
[2023-01-03 11:04] VITALS: BP 120/62
[2023-01-03] MEDS: divalproex 250mg tablet, delayed-release PO SCH ×2 (12:45→17:51)
[2023-01-03] MEDS: POTASSIUM BICARB 20meq eff tab 20 MEQ TABLET.EFF PO PRN ×2 (12:54→17:59)
--- NOTE | 2023-01-03 15:24 | NUR ---
PAGER ID: [phone] MESSAGE: Ramon Mack [id number] Dietary requesting ensure enlive TID for this pt. I will put order in. FYI Pt. constantly removing hospital monitor even with restraints on. Beata [phone]
--- NOTE | 2023-01-03 15:52 | NUR ---
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 Pt AOx1/confused w/ BUE restraints initially refusing all meals first two days of admit and family declining NG though PO intake is improving per EMR. Pt PO ~35% avg regular diet meals past ~3.5 days but continues to improve to ~66% past 4 meals w/ new EC7 starting WL today. Overall not meeting estimated needs; RD d/w RN who reports pt continues to be fed at meals though ground meats and plastic utensils would be better since pt is biting down hard on metal utensils- dietary notified. RD d/w RN recommends Ensure Enlive TIDWM if MD agreeable; orders now in EMR to start WS. LBM 12/31 receiving routine colace and PRN MoM this AM per EMR. Will monitor for further PO trends and nutrition intervention needs this admit. Rec: 1. continue regular/EC7 diet w/ ground meats/plastic utensils for ease of PO; max assistance w/ meals; encourage PO 2. Ensure Enlive TIDWM; monitor further PO trends and ONS acceptance 3. routine bowel care 4. scaled wt this admit; subsequent weekly wt Addendum: 01/03/23 at [address] Amended: Links added.
[2023-01-03 18:00] VITALS: BP 102/59
[2023-01-03] MEDS: lactose-reduced food (Ensure Enlive) - 237ml bottle PO SCH (18:00)
--- NOTE | 2023-01-03 19:05 | NUR ---
Gave report Loc DYSON
[2023-01-03] MEDS: enoxaparin 40mg/0.4ml syringe SUBCUT SCH (20:00)
[2023-01-03] MEDS: Melatonin 3mg tablet PO SCH (20:57)
--- NOTE | 2023-01-03 21:00 | NUR ---
REGIONAL DEDICATED TRUCK DRIVER documentation: I have reviewed and agree with all interventions, assessments performed and documented by Loc Snyder LVN.
[2023-01-04 02:00] VITALS: BP 147/84
--- NOTE | 2023-01-04 06:51 | NUR ---
Patient in room PCU 3027. I have received report from Loc NO and had the opportunity to ask questions and assume patient care.
[2023-01-04 07:26] LABS: ALANINE AMINOTRANSFERASE 41 U/L (12-78); ALBUMIN 2.3 G/DL (3.4-5.0); ALBUMIN/GLOBULIN RATIO 0.8 (1.1-1.5); ALKALINE PHOSPHATASE 42 IU/L (46-116); ANION GAP 7 (8-16); ASPARTATE AMINO TRANSFERASE 43 U/L (10-37); BILIRUBIN,TOTAL 1.1 MG/DL (0.1-1.0); BLOOD UREA NITROGEN 14 MG/DL (7-18); BUN/CREATININE RATIO 20.6 (10.0-20.0); CALCIUM 8.3 MG/DL (8.5-10.1); CHLORIDE 102 MMOL/L (99-107); CREATININE 0.68 MG/DL (0.60-1.10); GLUCOSE 102 MG/DL (70-104); MAGNESIUM 1.8 MG/DL (1.5-2.4); POTASSIUM 3.8 MMOL/L (3.5-5.1); SODIUM 137 MMOL/L (135-145); TOTAL CARBON DIOXIDE 28.3 MMOL/L (24-32); TOTAL PROTEIN 5.3 G/DL (6.4-8.2); eGFR > 90 ML/MIN
[2023-01-04 07:55] LABS: BASOPHILS % (AUTO) 0.3 % (0-1); EOSINOPHILS # (AUTO) 0.5 X10'3 (0-0.9); EOSINOPHILS % (AUTO) 6.2 % (0-6); HEMATOCRIT 33.4 % (42.0-52.0); HEMOGLOBIN 11.3 g/dl (14.0-17.9); LYMPHOCYTES # (AUTO) 1.1 X10'3 (1.1-4.8); LYMPHOCYTES % (AUTO) 13.7 % (21-51); MEAN CORPUSCULAR HEMOGLOBIN 31.2 PG (27.0-31.0); MEAN CORPUSCULAR HGB CONC 33.8 g/dL (33.0-36.5); MEAN CORPUSCULAR VOLUME 92.3 FL (78-98); MONOCYTES # (AUTO) 0.8 X10'3 (0-0.9); MONOCYTES % (AUTO) 9.8 % (2-12); NEUTROPHILS # (AUTO) 5.4 X10'3 (1.8-7.7); PLATELET COUNT 199 X10'3 (140-440); RED BLOOD COUNT 3.62 X10'6 (4.70-6.10); RED CELL DISTRIBUTION WIDTH 14.5 % (11.5-14.5); WHITE BLOOD COUNT 7.8 X10'3 (4.5-11.0)
[2023-01-04] MEDS: K and/or MAG REPLACEMENT MC SCH ×2 (08:00→19:34)
[2023-01-04] MEDS: lactose-reduced food (Ensure Enlive) - 237ml bottle PO SCH ×3 (08:00→18:00)
[2023-01-04] MEDS: CefTRIAXone/D5W-Rocephin 1gm 50 ML IV SCH (08:08)
[2023-01-04] MEDS: carVEDilol 3.125mg tablet PO SCH ×2 (08:47→19:24)
[2023-01-04] MEDS: divalproex 250mg tablet, delayed-release PO SCH ×3 (08:47→18:21)
[2023-01-04] MEDS: docusate sod 100mg capsule PO SCH ×2 (08:47→19:25)
[2023-01-04] MEDS: LORazepam 2 mg/ml vial IV PRN ×2 (11:45→23:12)
[2023-01-04] MEDS: normal saline 1000ml 1,000 ML IV SCH ×2 (11:48→19:40)
[2023-01-04 15:00] VITALS: BP 135/72
--- NOTE | 2023-01-04 17:53 | NUR ---
MESSAGE: [id number] Ramon Mack Pt is very aggitated and anxious. He has been yelling out and moving about his bed. His current order is for Ativan IJ 0.5mg. Could he have it more often or something additional to help him relax? Karol PINKING SEWING MACHINE OPERATOR [phone]
[2023-01-04 18:00] VITALS: BP 148/88
--- NOTE | 2023-01-04 18:40 | NUR ---
Received report from primary care nurse Karol NO. Assumed patient care with Robbin BRICENO. Patient is awake and alert on 1.5LNC. In no apparent distress. Will be repositioning patient for comfort at this time. Bed alarm on and audible. Restraints in place per order for patient safety.
--- NOTE | 2023-01-04 19:16 | NUR ---
Problems reprioritized. Patient report given, questions answered & plan of care reviewed with Mago BRICENO.
[2023-01-04] MEDS: Melatonin 3mg tablet PO SCH (19:25)
[2023-01-04] MEDS: traMADol 50MG tablet PO SCH (19:25)
[2023-01-04] MEDS: enoxaparin 40mg/0.4ml syringe SUBCUT SCH (19:26)
--- NOTE | 2023-01-04 20:30 | NUR ---
Patient in afib, contacted MD Montana for FYI, no new orders. Will continue to monitor.
[2023-01-04 22:00] VITALS: BP 120/66
[2023-01-05] VITALS (16 sets, daily range): BP systolic 99–143; BP diastolic 57–113
[2023-01-05] MEDS ORDERED: diltiazem-NS 100mg/100ml 100 ML IV SCH (00:30)
--- NOTE | 2023-01-05 00:30 | NUR ---
MD Montana notified that pt continues in Afib, new order for Cardizem and to start at 2.5mg/hr. Daughter Laurie notified via phone of Afib and new medication, daughter agrees with plan of care. Will continue to monitor.
[2023-01-05] MEDS: normal saline 1000ml 1,000 ML IV SCH ×3 (04:46→23:19)
[2023-01-05 06:25] LABS: BASOPHILS % (AUTO) 0.3 % (0-1); EOSINOPHILS # (AUTO) 0.5 X10'3 (0-0.9); EOSINOPHILS % (AUTO) 5.8 % (0-6); HEMATOCRIT 37.4 % (42.0-52.0); HEMOGLOBIN 12.8 g/dl (14.0-17.9); LYMPHOCYTES # (AUTO) 1.3 X10'3 (1.1-4.8); MEAN CORPUSCULAR HEMOGLOBIN 31.3 PG (27.0-31.0); MEAN CORPUSCULAR HGB CONC 34.3 g/dL (33.0-36.5); MEAN CORPUSCULAR VOLUME 91.3 FL (78-98); MONOCYTES # (AUTO) 0.9 X10'3 (0-0.9); MONOCYTES % (AUTO) 10.1 % (2-12); NEUTROPHILS # (AUTO) 6.3 X10'3 (1.8-7.7); NEUTROPHILS % (AUTO) 69.8 % (42-75); PLATELET COUNT 243 X10'3 (140-440); RED CELL DISTRIBUTION WIDTH 14.7 % (11.5-14.5); WHITE BLOOD COUNT 9.1 X10'3 (4.5-11.0)
--- NOTE | 2023-01-05 06:28 | NUR ---
Reported off to Karol NO. Patient is resting with relaxed and unlabored respirations on 1.5LNC. In no apparent distress. Bed alarms on and audible.
--- NOTE | 2023-01-05 06:32 | NUR ---
Patient in room PCU 3027. I have received report from Mago BRICENO and had the opportunity to ask questions and assume patient care.
[2023-01-05 06:42] LABS: ALANINE AMINOTRANSFERASE 34 U/L (12-78); ALBUMIN 2.4 G/DL (3.4-5.0); ALBUMIN/GLOBULIN RATIO 0.8 (1.1-1.5); ALKALINE PHOSPHATASE 47 IU/L (46-116); ANION GAP 8 (8-16); ASPARTATE AMINO TRANSFERASE 39 U/L (10-37); BLOOD UREA NITROGEN 11 MG/DL (7-18); BUN/CREATININE RATIO 15.9 (10.0-20.0); CALCIUM 8.3 MG/DL (8.5-10.1); CHLORIDE 102 MMOL/L (99-107); CREATININE 0.69 MG/DL (0.60-1.10); GLUCOSE 106 MG/DL (70-104); MAGNESIUM 1.8 MG/DL (1.5-2.4); POTASSIUM 3.8 MMOL/L (3.5-5.1); SODIUM 138 MMOL/L (135-145); TOTAL PROTEIN 5.4 G/DL (6.4-8.2); eGFR > 90 ML/MIN
[2023-01-05] MEDS: CefTRIAXone/D5W-Rocephin 1gm 50 ML IV SCH (07:23)
[2023-01-05] MEDS: LORazepam 2 mg/ml vial IV PRN ×2 (07:23→19:59)
--- NOTE | 2023-01-05 07:38 | NUR ---
Sent to Dr Nugent - MESSAGE: [id number] Ramon KnightNeil - Pt cont to be agitated. His heart rate in elevated and hes yelling and generally distraught. The increased ativan has been ineffective. Karol GUEST EXPERIENCE REPRESENTATIVE [phone]
[2023-01-05] MEDS: K and/or MAG REPLACEMENT MC SCH ×2 (08:00→19:36)
[2023-01-05] MEDS: docusate sod 100mg capsule PO SCH ×2 (08:07→19:59)
[2023-01-05] MEDS: divalproex 250mg tablet, delayed-release PO SCH ×3 (08:07→17:50)
[2023-01-05] MEDS: carVEDilol 3.125mg tablet PO SCH ×2 (08:08→20:00)
[2023-01-05] MEDS: traMADol 50MG tablet PO SCH (08:08)
[2023-01-05] MEDS: lactose-reduced food (Ensure Enlive) - 237ml bottle PO SCH ×3 (08:09→18:00)
[2023-01-05] MEDS ORDERED: haloperidol lactate 5mg/ml inj IM ONE (08:50)
--- NOTE | 2023-01-05 11:06 | NUR ---
Sent to Dr Nugent MESSAGE: [id number] Martina Navarro - Pt has had a reduced B/P and HR. At the beginning of the shift his B/P was 144/92 and currently it is 74/55 with HR of 50. Pt is too confused to express symptoms. Please advise. Karol FINE ARTS INSTRUCTOR [phone]
--- NOTE | 2023-01-05 13:56 | NUR ---
PRESSURE ULCER EDUCATION: DEFINITION: A pressure ulcer is an area of skin that breaks down when you stay in one position too long. The constant pressure against the skin reduces the blood flow to that area and the affected tissue dies. CAUSES: "Being bedridden or in a wheelchair "Fragile skin "Having a chronic condition, such as diabetes or vascular disease "Inability to move certain parts of your body without assistance "Older age "Incontinence of urine or stool SYMPTOMS: "A reddened area that DOES NOT turn white when pressed on - this can be the beginning of a pressure ulcer "A blister, deep sore or a crater - these can be advanced pressure ulcers FIRST AID: "Relieve the pressure on this area "Keep the area clean and dry "Call your primary doctor if you see any of the above symptoms "DO NOT massage the area "DO NOT use a donut shaped or ring shaped pillow- these actually interfere with the blood flow and cause complications PREVENTION: "Check for pressure ulcers everyday "Change position at least every two hours to relieve pressure "Use items that help relieve pressure- pillows, sheepskin, foam padding, and powders. "Keep skin clean and dry "Eat healthy well balanced meals "Exercise daily IF YOU SEE ANY OF THESE SYMPTOMS WHILE IN THE HOSPITAL - TELL YOUR NURSE IMMEDIATELY. IF YOU SEE ANY OF THESE SYMPTOMS WHILE AT HOME OR HAVE ANY QUESTIONS OR CONCERNS ABOUT PRESSURE ULCERS - CALL YOUR PRIMARY DOCTOR IMMEDIATELY. Addendum: 01/05/23 at 1357 by Marcin Leigh RN Amended: Links added.
--- NOTE | 2023-01-05 14:10 | NUR ---
Sent to Dr Nugent MESSAGE: [id number] Martina Navarro Pt cont to be combative and confused. Cont to pull on IV, pull off tele lines and condom catheter. Restraint renewal? Karol PARTS SALES ASSOCIATE [phone]
--- NOTE | 2023-01-05 18:24 | NUR ---
Problems reprioritized. Patient report given, questions answered & plan of care reviewed with Mago BRICENO.
--- NOTE | 2023-01-05 18:35 | NUR ---
Received report from primary care nurse Karol NO. Patient awake and alert on 1.5LNC. In no apparent distress. Call light and items of frequent use within reach. Will continue to monitor for changes.
--- NOTE | 2023-01-05 19:35 | NUR ---
Patient refusing meal and liquids at this time Addendum: 01/05/23 at 1935 by Mago Kay RN Amended: Links added.
[2023-01-05] MEDS: enoxaparin 40mg/0.4ml syringe SUBCUT SCH (20:02)
[2023-01-05] MEDS: Melatonin 3mg tablet PO SCH (20:03)
[2023-01-05] MEDS: acetaminophen 325mg tablet PO PRN (20:04)
--- NOTE | 2023-01-05 22:00 | NUR ---
Spoke with daughter Aubree regarding desire to speak with physician regarding possibility of palliative care. Placed an order for social service consult.
[2023-01-06 02:00] VITALS: BP 147/72
[2023-01-06] MEDS: LORazepam 2 mg/ml vial IV PRN ×3 (02:15→20:57)
[2023-01-06 06:30] VITALS: BP 122/64
--- NOTE | 2023-01-06 06:30 | NUR ---
Reported off to Karol NO. Patient is resting with relaxed and unlabored respirations on 1.5LNC. In no apparent distress. Bed alarms on and audible.
[2023-01-06 07:13] LABS: BASOPHILS % (AUTO) 0.6 % (0-1); EOSINOPHILS # (AUTO) 0.4 X10'3 (0-0.9); EOSINOPHILS % (AUTO) 6.2 % (0-6); HEMATOCRIT 34.2 % (42.0-52.0); HEMOGLOBIN 11.6 g/dl (14.0-17.9); LYMPHOCYTES # (AUTO) 1.2 X10'3 (1.1-4.8); MEAN CORPUSCULAR HEMOGLOBIN 30.9 PG (27.0-31.0); MEAN PLATELET VOLUME 7.8 FL (7.4-10.4); MONOCYTES # (AUTO) 0.7 X10'3 (0-0.9); MONOCYTES % (AUTO) 10.5 % (2-12); NEUTROPHILS # (AUTO) 4.4 X10'3 (1.8-7.7); NEUTROPHILS % (AUTO) 64.7 % (42-75); PLATELET COUNT 226 X10'3 (140-440); RED BLOOD COUNT 3.76 X10'6 (4.70-6.10); RED CELL DISTRIBUTION WIDTH 14.6 % (11.5-14.5); WHITE BLOOD COUNT 6.8 X10'3 (4.5-11.0)
[2023-01-06] MEDS ORDERED: haloperidol lactate 5mg/ml inj IM ONE (07:25)
[2023-01-06] MEDS: carVEDilol 3.125mg tablet PO SCH (07:26)
[2023-01-06] MEDS: docusate sod 100mg capsule PO SCH (07:35)
[2023-01-06] MEDS: divalproex 250mg tablet, delayed-release PO SCH ×2 (07:35→13:00)
[2023-01-06] MEDS: traMADol 50MG tablet PO SCH (07:36)
[2023-01-06] MEDS: CefTRIAXone/D5W-Rocephin 1gm 50 ML IV SCH (07:59)
[2023-01-06] MEDS: lactose-reduced food (Ensure Enlive) - 237ml bottle PO SCH ×3 (08:00→18:00)
[2023-01-06] MEDS: K and/or MAG REPLACEMENT MC SCH ×2 (08:00→20:00)
[2023-01-06] MEDS ORDERED: OLANZapine 2.5MG tablet PO ONE (09:00)
[2023-01-06 09:25] LABS: ALANINE AMINOTRANSFERASE 36 U/L (12-78); ALBUMIN 2.4 G/DL (3.4-5.0); ALBUMIN/GLOBULIN RATIO 0.8 (1.1-1.5); ALKALINE PHOSPHATASE 46 IU/L (46-116); ANION GAP 8 (8-16); ASPARTATE AMINO TRANSFERASE 30 U/L (10-37); BILIRUBIN,TOTAL 0.8 MG/DL (0.1-1.0); BLOOD UREA NITROGEN 12 MG/DL (7-18); BUN/CREATININE RATIO 16.9 (10.0-20.0); CALCIUM 8.2 MG/DL (8.5-10.1); CHLORIDE 104 MMOL/L (99-107); CREATININE 0.71 MG/DL (0.60-1.10); GLUCOSE 90 MG/DL (70-104); MAGNESIUM 1.8 MG/DL (1.5-2.4); POTASSIUM 3.8 MMOL/L (3.5-5.1); SODIUM 141 MMOL/L (135-145); TOTAL CARBON DIOXIDE 28.6 MMOL/L (24-32); TOTAL PROTEIN 5.3 G/DL (6.4-8.2); eGFR > 90 ML/MIN
[2023-01-06] MEDS: normal saline 1000ml 1,000 ML IV SCH (09:48)
--- NOTE | 2023-01-06 10:39 | NUR ---
Patient in room PCU 3027. I have received report from Mago BRICENO and had the opportunity to ask questions and assume patient care. Addendum: 01/06/23 at 1040 by Karol Browning LVN, LVN Report recieved at 1896
[2023-01-06 11:00] VITALS: BP 106/77
--- NOTE | 2023-01-06 12:59 | NUR ---
Sent to Dr Mcconnell - [id number] Ramon Mack is at bedside and hoping to talk about comfort care. Karol [phone]
[2023-01-06] MEDS ORDERED: morphine ORAL 5MG/0.25 ML (Conc. morphine) oral syringe PO PRN (16:25)
--- NOTE | 2023-01-06 17:23 | NUR ---
Sent to Dr Mcconnell - [id number] Ramon Mack - Could we increase ativan dose due to extreme aggitation? Karol [phone]
[2023-01-06 18:00] VITALS: BP 190/54
--- NOTE | 2023-01-06 18:30 | NUR ---
Patient in room PCU 3027. I have received report from ONEAL QUINTANA and had the opportunity to ask questions and assume patient care.
[2023-01-06 22:00] VITALS: BP 172/60
[2023-01-07 02:00] VITALS: BP 168/64
--- NOTE | 2023-01-07 06:27 | NUR ---
Problems reprioritized. Patient report given, questions answered & plan of care reviewed with ETHELRN.
[2023-01-07 07:00] VITALS: BP 141/79
[2023-01-07 07:05] LABS: BASOPHILS % (AUTO) 0.4 % (0-1); EOSINOPHILS # (AUTO) 0.3 X10'3 (0-0.9); EOSINOPHILS % (AUTO) 3.6 % (0-6); HEMATOCRIT 38.9 % (42.0-52.0); HEMOGLOBIN 13.2 g/dl (14.0-17.9); LYMPHOCYTES # (AUTO) 1.1 X10'3 (1.1-4.8); LYMPHOCYTES % (AUTO) 12.9 % (21-51); MEAN CORPUSCULAR HEMOGLOBIN 30.8 PG (27.0-31.0); MEAN CORPUSCULAR HGB CONC 33.9 g/dL (33.0-36.5); MEAN CORPUSCULAR VOLUME 90.7 FL (78-98); MONOCYTES # (AUTO) 0.9 X10'3 (0-0.9); NEUTROPHILS # (AUTO) 6.5 X10'3 (1.8-7.7); NEUTROPHILS % (AUTO) 73.1 % (42-75); PLATELET COUNT 270 X10'3 (140-440); RED BLOOD COUNT 4.29 X10'6 (4.70-6.10); RED CELL DISTRIBUTION WIDTH 14.5 % (11.5-14.5); WHITE BLOOD COUNT 8.8 X10'3 (4.5-11.0)
[2023-01-07 07:26] LABS: ALANINE AMINOTRANSFERASE 39 U/L (12-78); ALBUMIN 2.8 G/DL (3.4-5.0); ALBUMIN/GLOBULIN RATIO 0.9 (1.1-1.5); ALKALINE PHOSPHATASE 58 IU/L (46-116); ANION GAP 11 (8-16); ASPARTATE AMINO TRANSFERASE 42 U/L (10-37); BILIRUBIN,TOTAL 0.9 MG/DL (0.1-1.0); BLOOD UREA NITROGEN 7 MG/DL (7-18); BUN/CREATININE RATIO 10.1 (10.0-20.0); CALCIUM 8.7 MG/DL (8.5-10.1); CHLORIDE 103 MMOL/L (99-107); CREATININE 0.69 MG/DL (0.60-1.10); GLUCOSE 89 MG/DL (70-104); POTASSIUM 3.6 MMOL/L (3.5-5.1); SODIUM 142 MMOL/L (135-145); TOTAL CARBON DIOXIDE 28.3 MMOL/L (24-32); TOTAL PROTEIN 5.9 G/DL (6.4-8.2); eGFR > 90 ML/MIN
--- NOTE | 2023-01-07 07:29 | NUR ---
Patient in room PCU 3027. I have received report from Marah BRICENO and had the opportunity to ask questions and assume patient care.
[2023-01-07] MEDS: K and/or MAG REPLACEMENT MC SCH ×2 (08:00→20:00)
[2023-01-07] MEDS: LORazepam 2 mg/ml vial IV PRN ×5 (08:33→20:35)
[2023-01-07] MEDS: lactose-reduced food (Ensure Enlive) - 237ml bottle PO SCH ×3 (08:33→18:00)
[2023-01-07] MEDS: OLANZapine 2.5MG tablet PO SCH (08:33)
[2023-01-07] MEDS: morphine 10mg/0.5ml (conc. morphine) oral syringe PO PRN ×2 (13:31→22:16)
--- NOTE | 2023-01-07 13:45 | NUR ---
I addressed end of life planning with family at bedside. They stated they wanted [facility] in [place] as their choice for home.
--- NOTE | 2023-01-07 15:19 | NUR ---
F/u 01/07: Pt now DNR w/ comfort care per EMR. Noted LBM 12/31 7 days constipation w/ routine bowel regimen cancelled. GLORIA d/w RN regarding bowel regimen if pt appropriate and feeling discomfort per physician discretion given constipation. Will follow per comfort measures. Rec: 1. continue regular/EC7 diet w/ ground meats/plastic utensils for ease of PO; max assistance w/ meals; encourage PO 2. Ensure Enlive TIDWM; continue if pt requests 3. routine bowel care Addendum: 01/07/23 at [address] Amended: Links added.
--- NOTE | 2023-01-07 18:39 | NUR ---
Problems reprioritized. Patient report given, questions answered & plan of care reviewed with Paras BRICENO.
[2023-01-07 19:10] VITALS: BP 122/77
[2023-01-08] MEDS: LORazepam 2 mg/ml vial IV PRN ×4 (02:03→15:02)
[2023-01-08] MEDS: morphine 10mg/0.5ml (conc. morphine) oral syringe PO PRN ×8 (05:38→23:13)
[2023-01-08 06:38] LABS: BASOPHILS % (AUTO) 0.3 % (0-1); EOSINOPHILS # (AUTO) 0.3 X10'3 (0-0.9); EOSINOPHILS % (AUTO) 2.5 % (0-6); HEMATOCRIT 38.5 % (42.0-52.0); HEMOGLOBIN 13.4 g/dl (14.0-17.9); LYMPHOCYTES # (AUTO) 1.3 X10'3 (1.1-4.8); LYMPHOCYTES % (AUTO) 10.5 % (21-51); MEAN CORPUSCULAR HEMOGLOBIN 31.7 PG (27.0-31.0); MEAN CORPUSCULAR HGB CONC 34.7 g/dL (33.0-36.5); MEAN CORPUSCULAR VOLUME 91.4 FL (78-98); MEAN PLATELET VOLUME 8.2 FL (7.4-10.4); MONOCYTES # (AUTO) 1.2 X10'3 (0-0.9); NEUTROPHILS # (AUTO) 9.6 X10'3 (1.8-7.7); NEUTROPHILS % (AUTO) 76.7 % (42-75); PLATELET COUNT 280 X10'3 (140-440); RED BLOOD COUNT 4.21 X10'6 (4.70-6.10); RED CELL DISTRIBUTION WIDTH 14.4 % (11.5-14.5); WHITE BLOOD COUNT 12.5 X10'3 (4.5-11.0)
--- NOTE | 2023-01-08 06:38 | NUR ---
Patient in room U 3027. I have received report from Paras BRICENO and had the opportunity to ask questions and assume patient care.Patient is resting in bed in no acute distress.
[2023-01-08 06:53] LABS: ALANINE AMINOTRANSFERASE 46 U/L (12-78); ALBUMIN 2.7 G/DL (3.4-5.0); ALBUMIN/GLOBULIN RATIO 0.9 (1.1-1.5); ALKALINE PHOSPHATASE 60 IU/L (46-116); ANION GAP 11 (8-16); ASPARTATE AMINO TRANSFERASE 44 U/L (10-37); BLOOD UREA NITROGEN 15 MG/DL (7-18); BUN/CREATININE RATIO 18.8 (10.0-20.0); CALCIUM 8.6 MG/DL (8.5-10.1); CHLORIDE 102 MMOL/L (99-107); GLUCOSE 82 MG/DL (70-104); POTASSIUM 3.7 MMOL/L (3.5-5.1); SODIUM 140 MMOL/L (135-145); TOTAL CARBON DIOXIDE 27.4 MMOL/L (24-32); TOTAL PROTEIN 5.6 G/DL (6.4-8.2); eGFR > 90 ML/MIN
[2023-01-08 07:00] VITALS: BP 169/103
--- NOTE | 2023-01-08 07:29 | NUR ---
trial removal of restraints - restraints released for comfort
--- NOTE | 2023-01-08 07:30 | NUR ---
bed alarm on
[2023-01-08] MEDS: lactose-reduced food (Ensure Enlive) - 237ml bottle PO SCH (08:00)
[2023-01-08] MEDS: K and/or MAG REPLACEMENT MC SCH ×2 (08:00→20:00)
[2023-01-08] MEDS: OLANZapine 2.5MG tablet PO SCH (08:00)
--- NOTE | 2023-01-08 10:22 | NUR ---
Dr Auguste gave me an order at the bedside to change the roxanol to 10 mg po Q2 hours to keep patient comfortable.
--- NOTE | 2023-01-08 10:54 | NUR ---
oral care provided
[2023-01-08] MEDS ORDERED: scopolamine 1mg/72 hr patch TD SCH (11:25)
--- NOTE | 2023-01-08 11:27 | NUR ---
family concerned about patient choking on secretions so I asked Dr. Auguste for a scopalmine patch. He gave me a verbal order for the patch.
[2023-01-08] MEDS ORDERED: scopolamine 1.5mg patch.TD72 (72-hour patch) TD SCH (11:42)
--- NOTE | 2023-01-08 18:05 | NUR ---
Problems reprioritized. Patient report given, questions answered & plan of care reviewed with Paras BRICENO. Patient resting in bed in no acute distress. Family is at bedside.
[2023-01-08 18:30] VITALS: BP 87/42
[2023-01-09] MEDS: morphine 10mg/0.5ml (conc. morphine) oral syringe PO PRN ×8 (04:06→23:51)
[2023-01-09] MEDS: LORazepam 2 mg/ml vial IV PRN ×5 (06:04→22:24)
--- NOTE | 2023-01-09 06:31 | NUR ---
Problems reprioritized. Patient report given, questions answered & plan of care reviewed with TATIANA. Addendum: 01/09/23 at 0632 by Hank Colindres RN Amended: Links added.
--- NOTE | 2023-01-09 06:37 | NUR ---
Patient in room U 3027. I have received report from Paras BRICENO and had the opportunity to ask questions and assume patient care. Patient resting in bed in no acute distress.
[2023-01-09 07:00] VITALS: BP 131/65
--- NOTE | 2023-01-09 07:03 | NUR ---
Page Sent promotional table spacer PAGER ID: [phone] MESSAGE: [id number] Bryan. Patient moaning in pain. NOC RN did not keep up on pain meds and ativan. He gave them both an hour ago and now I have nothing to give. Can I give a one time dose of 5 mg benny or another dose of ativan ? Bertha@[phone] (229 character message out of a maximum of 240)
[2023-01-09] MEDS ORDERED: morphine 10mg/0.5ml (conc. morphine) oral syringe PO ONE (07:05)
--- NOTE | 2023-01-09 07:06 | NUR ---
Dr Auguste gave me a one time order for 5mg po roxanol once now to keep patient comfortable.
[2023-01-09] MEDS: K and/or MAG REPLACEMENT MC SCH ×2 (08:00→20:00)
[2023-01-09] MEDS: OLANZapine 2.5MG tablet PO SCH (08:00)
--- NOTE | 2023-01-09 18:20 | NUR ---
Problems reprioritized. Patient report given, questions answered & plan of care reviewed with Emerald RN. Patient resting comfortably.
[2023-01-09 22:00] VITALS: BP 121/54
[2023-01-10] MEDS: morphine 10mg/0.5ml (conc. morphine) oral syringe PO PRN ×7 (02:06→20:55)
[2023-01-10] MEDS: LORazepam 2 mg/ml vial IV PRN ×8 (02:25→23:07)
--- NOTE | 2023-01-10 06:35 | NUR ---
Problems reprioritized. Patient report given, questions answered & plan of care reviewed with Olga BRICENO.
--- NOTE | 2023-01-10 06:44 | NUR ---
RN had a chat with pt's daughter via phone,updated her on pt's condition.
[2023-01-10] MEDS: OLANZapine 2.5MG tablet PO SCH (09:31)
[2023-01-10] MEDS: K and/or MAG REPLACEMENT MC SCH (09:31)
[2023-01-10] MEDS ORDERED: OLANZapine **IM** 10 mg inj. IM ONE (10:45)
[2023-01-10 18:00] VITALS: BP 89/48
--- NOTE | 2023-01-10 18:59 | NUR ---
Problems reprioritized. Patient report given, questions answered & plan of care reviewed with KAITY MCWILLIAMS.
[2023-01-11] MEDS: morphine 10mg/0.5ml (conc. morphine) oral syringe PO PRN ×3 (00:37→12:26)
[2023-01-11] MEDS: LORazepam 2 mg/ml vial IV PRN ×4 (02:03→11:03)
--- NOTE | 2023-01-11 04:38 | NUR ---
SCANT URINE OUTPUT. RESPIRATIONS DEEP, LUNGS WITH RALES THROUGHOUT. ROXANOL AND ATIVAN ALTERNATED TO KEEP COMFORTABLE,
--- NOTE | 2023-01-11 06:11 | NUR ---
Patient in room PCU 3027. I have received report from shelley BRICENO and had the opportunity to ask questions and assume patient care.
[2023-01-11 07:19] VITALS: BP 94/55
[2023-01-11] MEDS ORDERED: scopolamine 1mg/72 hr patch TD SCH (12:30)
--- NOTE | 2023-01-11 15:01 | NUR ---
meds given as per EMAR. family present for the morning.. patient 1452. will notify family and donors network
--- NOTE | 2023-01-11 16:29 | NUR ---
patient is not a candidate for donor network. Awaiting quill picking machine operator
--- NOTE | 2023-01-11 17:48 | NUR ---
patient picked up by mary beth, taken to [facility]
== END 2023-01-11 16:54 | DRG 199 ==
LOC: ER 12:47 → ED HOLD 18:29 → PCU 3S 20:00
PROVIDERS: ADMIT Family Medicine; ATTEND Family Medicine
DX: S27.2XXA Traumatic hemopneumothorax, initial encounter (principal); G93.41 Metabolic encephalopathy; J69.0 Pneumonitis due to inhalation of food and vomit; S22.41XA Multiple fractures of ribs, right side, initial encounter for closed fracture; S42.401A Unspecified fracture of lower end of right humerus, initial encounter for closed fracture; F02.811 Dementia in other diseases classified elsewhere, unspecified severity, with agitation; F05 Delirium due to known physiological condition; M25.021 Hemarthrosis, right elbow; Z51.5 Encounter for palliative care; Z66 Do not resuscitate; G30.9 Alzheimer's disease, unspecified; T79.7XXA Traumatic subcutaneous emphysema, initial encounter; W18.2XXA Fall in (into) shower or empty bathtub, initial encounter; D72.829 Elevated white blood cell count, unspecified; F29 Unspecified psychosis not due to a substance or known physiological condition; G89.29 Other chronic pain; R00.0 Tachycardia, unspecified; I25.10 Atherosclerotic heart disease of native coronary artery without angina pectoris; R29.6 Repeated falls; Z78.1 Physical restraint status; Z85.828 Personal history of other malignant neoplasm of skin; Z87.891 Personal history of nicotine dependence; Z95.1 Presence of aortocoronary bypass graft; Y93.89 Activity, other specified; Y92.098 Other place in other non-institutional residence as the place of occurrence of the external cause; Y99.8 Other external cause status; Z79.899 Other long term (current) drug therapy; E78.5 Hyperlipidemia, unspecified
CPT/HCPCS: 36415; 70450; 70551; 71045; 71250; 73080; 74176; 80053; 80061; 81003; 83605; 83735; 84145; 84443; 85007; 85025; 85610; 85730; 87040; 87081; 92508; 92616; 93005; 94760; 97110; 97161; 97530; 97535; 99285; A4349; A4615; A4649; A6212; A6213; A6449; G0378; J0696; J1170; J1630; J1650; J2060; J2405; J3486; J3490; J7030; J7040